=== PATIENT | female | born 1970 | race African-American/Black ===

== ENCOUNTER 2023-09-09 06:21 | Emergency (ER) | payer SELFPAY ==
[2023-09-09] MEDS ORDERED: Dexamethasone 10 MG/ML VIAL ONE (07:33)
[2023-09-09] MEDS ORDERED: Ibuprofen 200 MG TAB ONE (07:33)
[2023-09-09 08:23] LABS: SARS-CoV-2 NAA Rapid Test Not Detected (NotDetected)
== END 2023-09-09 08:04 | disposition home or self-care (01) ==
LOC: ERS 06:21
DX: J06.9 Acute upper respiratory infection, unspecified (principal); I10 Essential (primary) hypertension; Z79.899 Other long term (current) drug therapy; Z20.822 Contact with and (suspected) exposure to COVID-19
CPT/HCPCS: 96372; 99283; J1100